=== PATIENT | female | born 1990 | race Caucasian/White ===

== ENCOUNTER 2020-01-31 10:02 | Emergency (ER) | payer BC, SELFPAY ==
--- NOTE | 2020-01-31 10:09 | ED.FEMALEGU ---
HPI - Female Genitourinary General Chief complaint: Urogenital-Female Stated complaint: uti Source: patient Mode of arrival: ambulatory Limitations: no limitations History of Present Illness HPI Narrative: Patient is a 29-year-old female who presents complaining of dysuria, frequency and urgency x3 days. Reports pain of 5/10 with urination. She denies vaginal discharge, denies new sexual partners. She denies fever or flank pain. MD elicited complaint: UTI Related Data Home Medications Medication Instructions Recorded Confirmed fluticasone propion-salmeterol 2 puff INHALATION BID PRN 01/31/20 01/31/20 [Advair HFA] Allergies Allergy/AdvReac Type Severity Reaction Status Date / Time gluten Allergy Severe stomach Verified 01/31/20 10:16 issues Review of Systems Review of Systems: Narrative: CONSTITUTIONAL: Denies fever, chills, or sweats. EYES: Denies visual changes, redness, or discharge. ENT: Denies rhinorrhea, congestion, sore throat, or otalgia. CARDIOVASCULAR: Denies chest pain, palpitations, or edema. RESPIRATORY: Denies cough or dyspnea. GASTROINTESTINAL: Denies abdominal pain, nausea, vomiting, or diarrhea. GENITOURINARY: Reports dysuria, denies gross hematuria. SKIN: Denies rash or itching. MUSCULOSKELETAL: Denies back pain, joint pain, or myalgia. NEUROLOGIC: Denies headache, numbness, dizziness, or weakness. PSYCHIATRIC: Denies anxiety or depression. [facility] Surgical History Surgical History (Updated 01/31/20 @ 10:23 by ALONSO Helton) No significant past surgical history Family History Family History Father Family history of throat cancer Social History Social History (Updated 01/31/20 @ 10:23 by ALONSO Helton) Smoking status: Former smoker Tobacco type: cigarettes Alcohol intake: current Alcohol use details: Socially Gender identity (if verbalized by the patient): Female Exam Narrative: Exam Narrative: GENERAL: Well-appearing, well-nourished, and in no acute distress. HEAD: Normocephalic, atraumatic. EYES: EOMI. No redness or drainage. ENT: Mucous membranes pink and moist. CHEST: No respiratory distress. Clear to auscultation. HEART: Regular rate and rhythm. No murmur appreciated. Normal peripheral pulses. GI: Soft, nontender without rebound, or guarding. No distention. EXTREMITIES: Normal range of motion. SKIN: Warm, dry, no rash. NEURO: No focal deficits. Alert and oriented x3. Gait steady. PSYCH: Normal affect. No signs of depression or anxiety. MDM - Female Genitourinary MDM Narrative Medical decision making narrative: Patient has hematuria and small amount of leukocytes in UA, culture to be sent. Patient is symptomatic and to be treated for UTI at this time. Patient is aware that if pain increases, is unable to urinate, or develops nausea and vomiting, she is to be seen in the emergency department. Patient is stable for discharge home with outpatient follow-up. Differential Diagnosis Differential diagnosis: Likely urinary tract infection Medical Records Attestation: I reviewed the patient's medical records. Lab Data Attestation: I reviewed the patient's lab results. Critical Care Time Critical Care Time Critical Care Time: No Discharge Plan Discharge Clinical Impression: Urinary tract infection Qualifiers: Urinary tract infection type: acute cystitis Hematuria presence: with hematuria Qualified Code(s): N30.01 - Acute cystitis with hematuria Patient Disposition: Home, Self-Care Condition: Stable Instructions: Antibiotic Form, Urinary Tract Infection in Women (DC) Additional Instructions: Your urine shows infection today. Take Macrobid as prescribed until gone. Your urine will be sent off for a culture to identify whatever bacteria is causing her infection. If the culture shows that your antibiotic will not get rid of your infection, you will be notified and a
[2020-01-31 10:12] VITALS: BP 116/69; PULSE 59; RESP 16; TEMP 36.6; O2SAT 100
== END 2020-01-31 10:40 | disposition home or self-care (01) ==
PROVIDERS: Emergency Provider Nurse Practitioner
DX: N30.01 Acute cystitis with hematuria (principal); Z87.891 Personal history of nicotine dependence
CPT/HCPCS: 81003; 87077; 87086; 87088; 87186; 99213; G0463